=== PATIENT | female | born 1975 | race Caucasian/White ===

== ENCOUNTER 2017-10-27 00:30 | Inpatient (IN) | payer OTHER ==
[~2017-10-27] VITALS: Ht 160 cm; Wt 121.0 kg
[~2017-10-27 00:30] MED LIST: ABILIFY10 MG PO; ATARAX,VISTARIL50 MG PO; BENZTROPINE MESY1 MG; BUDEPRION SR150 MG PO; BUPROPION HCL150 M2; CELEXA40 MG; CHLORPROMAZINE100 MG PO; COGENTIN1 MG PO; DESYREL100 MG PO; HALDOL DEC100 MG/1 M IM; HALDOL10 MG PO; LORAZEPAM0.5 MG PO; PERPHENAZINE8 MG PO; PROPRANOLOL HCL40 MG PO
[2017-10-27 01:28] LABS: BASOPHIL (%) 0.4 % (0-1); EOSINOPHIL COUNT 0.1 K/uL (0-0.3); HEMOGLOBIN 12.4 G/DL (11.9-15.5); IMMATURE GRANULOCYTE (%) 0.2 % (0.0-0.7); LYMPHOCYTE (%) 23.4 % (15-42); LYMPHOCYTE COUNT 2.2 K/uL (1.0-2.8); MCH 30.8 PG (29.0-34.0); MCHC 33.5 G/DL (30.0-36.0); MONOCYTE COUNT 0.9 K/uL (0-0.8); NEUTROPHIL COUNT 6.3 K/uL (1.8-6.4); PLATELET COUNT 234 K/uL (156-360); RBC DIS.WIDTH-CV 14.6 % (11.8-14.6); RBC DIS.WIDTH-SD 49.1 % (39-53); RED BLOOD COUNT 4.02 M/uL (3.80-5.20); WHITE BLOOD COUNT 9.6 K/uL (4.1-10.2)
[2017-10-27 01:45] LABS: CHLORIDE 105 mEq/L (99-109); POTASSIUM 3.6 mEq/L (3.7-5.4); SODIUM 141 mEq/L (136-147)
[2017-10-27 01:47] LABS: GLUCOSE 113 mg/dL (70-99)
[2017-10-27 01:50] LABS: SERUM ETHYL ALCOHOL < 10 mg/dL
[2017-10-27 01:51] LABS: CREATININE 0.7 mg/dL (0.6-1.3); GFR ESTIMATE (CALCULATED) > 59 mL/min/
[2017-10-27 01:52] LABS: UREA NITROGEN (BUN) 10 mg/dL (9-23)
[2017-10-27 01:54] LABS: ACETAMINOPHEN (TYLENOL) < 10 mcg/mL (10-30); SALICYLATE < 5.0 MG/DL (15-30)
[2017-10-27 02:44] LABS: AMPHETAMINE NEGATIVE (500 ng/mL); BARBITURATES NEGATIVE (200 ng/mL); BENZODIAZEPINES NEGATIVE (150 ng/mL); BUPRENORPHINE NEGATIVE (10 ng/mL); COCAINE NEGATIVE (150 ng/mL); METHADONE NEGATIVE (200 ng/mL); METHAMPHETAMINE NEGATIVE (500 ng/mL); OPIATES (MORPHINE) NEGATIVE (100 ng/mL); OXYCODONE NEGATIVE (100 ng/mL); PHENCYCLIDINE NEGATIVE (25 ng/mL); PROPOXYPHENE NEGATIVE (300 ng/mL); THC CANNABINOIDS NEGATIVE (50 ng/mL); TRICYCLIC ANTIDEPRESSANTS NEGATIVE (300 ng/mL)
[2017-10-27] MEDS ORDERED: CLOZARIL100 MG PO ×2 (05:20→13:37)
[2017-10-27] MEDS ORDERED: WELLBUTRIN75 MG PO (05:21)
[2017-10-27 05:43] VITALS: BP 117/54
[2017-10-27 07:56] VITALS: BP 137/63
[2017-10-27 16:27] VITALS: BP 118/66
[2017-10-28 08:01] VITALS: BP 119/56
[2017-10-28 11:35] LABS: APPEARANCE CLOUDY ((CLEAR)); BILIRUBIN NEGATIVE; BLOOD LARGE; GLUCOSE (STRIP) NEGATIVE; KETONES NEGATIVE; LEUKOCYTES TRACE; NITRITE NEGATIVE; PROTEIN (STRIP) 100; UROBILINOGEN 0.2 MG/DL (0.2-1.0)
[2017-10-28 11:36] LABS: COLOR RED ((YELLOW))
[2017-10-28 11:50] LABS: BACTERIA 1+ /HPF; EPITHELIAL CELLS 1+ /HPF; MUCUS NONE SEEN /LPF; RED BLOOD CELLS TNTC /HPF (0-5); WHITE BLOOD CELLS 0-5 /HPF (0-5)
[2017-10-28 14:39] VITALS: BP 105/51
[2017-10-29 07:31] VITALS: BP 99/60
[2017-10-29 15:12] VITALS: BP 104/55
[2017-10-30 07:38] VITALS: BP 109/59
[2017-10-30 15:12] VITALS: BP 119/59
[2017-10-31 08:06] VITALS: BP 116/55
== END 2017-10-31 11:18 | disposition home or self-care (01) | DRG 885 ==
LOC: EME 00:30 → 1WEST 03:00 → EDOF 03:00 → ENRESERV 05:07 → 1WEST 05:35
PROVIDERS: Emergency Medicine; Psychiatry & Neurology Psychiatry
DX: F25.9 Schizoaffective disorder, unspecified (principal); Z91.14 Patient's other noncompliance with medication regimen; I10 Essential (primary) hypertension; F17.200 Nicotine dependence, unspecified, uncomplicated
CPT/HCPCS: 80048; 81003; 81025; 85025; 90839; 97150 GO; 97166 GO; 99281; 99284; G0480

== ENCOUNTER 2017-11-24 17:02 | Emergency (ER) | payer OTHER ==
[~2017-11-24] VITALS: Ht 160 cm; Wt 124.1 kg
[~2017-11-24 17:02] MED LIST changes: +CLOZARIL100 MG PO; +WELLBUTRIN75 MG PO
[2017-11-24 17:29] VITALS: BP 126/77
[2017-11-24 18:00] LABS: HEMATOCRIT 37.1 % (36.0-46.0); HEMOGLOBIN 12.6 G/DL (11.9-15.5); MCV 91.2 FL (83-99); PLATELET COUNT 299 K/uL (156-360); RBC DIS.WIDTH-CV 13.8 % (11.8-14.6); RBC DIS.WIDTH-SD 46.3 % (39-53); RED BLOOD COUNT 4.07 M/uL (3.80-5.20); WHITE BLOOD COUNT 9.3 K/uL (4.1-10.2)
[2017-11-24 18:11] LABS: ALBUMIN 4.1 g/dL (3.2-4.8); CHLORIDE 105 mEq/L (99-109); POTASSIUM 3.2 mEq/L (3.7-5.4); SODIUM 140 mEq/L (136-147)
[2017-11-24 18:14] LABS: GLUCOSE 118 mg/dL (70-99); TOTAL PROTEIN 7.2 g/dL (6.4-8.3)
[2017-11-24 18:16] LABS: TOTAL BILIRUBIN 0.3 mg/dL (0.0-1.0)
[2017-11-24 18:17] LABS: ALKALINE PHOSPHATASE 146 IU/L (3-129)
[2017-11-24 18:18] LABS: CREATININE 0.8 mg/dL (0.6-1.3); GFR ESTIMATE (CALCULATED) > 59 mL/min/
[2017-11-24 18:19] LABS: AST (GOT) 40 IU/L (2-34); UREA NITROGEN (BUN) 12 mg/dL (9-23)
[2017-11-24 18:20] LABS: ALT (GPT) 45 IU/L (3-49)
[2017-11-24 18:21] LABS: LIPASE 28 U/L (1.0-51.0)
[2017-11-24 18:26] LABS: QUANTITATIVE HCG < 4.0 MIU/ML
[2017-11-24 19:29] LABS: TROP-I INTERPRETATION NEGATIVE; TROPONIN-I < 0.01 ng/mL (0.0-0.30)
== END 2017-11-24 19:45 | disposition left against medical advice (07) ==
LOC: EME 17:02
DX: F41.9 Anxiety disorder, unspecified (principal); R07.9 Chest pain, unspecified; R19.7 Diarrhea, unspecified; R06.02 Shortness of breath; R00.0 Tachycardia, unspecified; R45.1 Restlessness and agitation; F17.200 Nicotine dependence, unspecified, uncomplicated; Z53.20 Procedure and treatment not carried out because of patient's decision for unspecified reasons
CPT/HCPCS: 80053; 81003; 83690; 84484; 84702; 85027; 93005